=== PATIENT | male | born 1970 | race Caucasian/White ===

== ENCOUNTER 2019-09-19 22:04 | Emergency (ER) | payer MEDICAID, OTHER ==
[~2019-09-19] VITALS: Ht 170.2 cm; Wt 66.6 kg
--- NOTE | 2019-09-19 22:47 | NUR ---
GILBERTO FERRARA IN TO ERYN PT. AND DISCUSS POC.
[2019-09-19] MEDS ORDERED: LIDOCAINE-MPF 1%, 5ML INFIL ONE (23:00)
[2019-09-19] MEDS ORDERED: DIPH,PERTUSS(ACELL),TET VAC/PF 0.5 ML IM-VACC ONE (23:30)
[2019-09-19] MEDS ORDERED: PLEASE ENTER ALLERGIES MC SCH (23:45)
[2019-09-19] MEDS ORDERED: LIDOCAINE-MPF 1%, 5ML ONE (23:49)
[2019-09-20] MEDS ORDERED: BACITRACIN ZINC OINT 500U/GM, 0.9 GM ONE (00:12)
[2019-09-20 00:31] VITALS: BP 112/85
== END 2019-09-20 00:33 | disposition home or self-care (01) ==
LOC: ED 22:45
DX: S61.411A Laceration without foreign body of right hand, initial encounter (principal); L73.8 Other specified follicular disorders; F17.200 Nicotine dependence, unspecified, uncomplicated; W01.0XXA Fall on same level from slipping, tripping and stumbling without subsequent striking against object, initial encounter; Y93.89 Activity, other specified; Y92.098 Other place in other non-institutional residence as the place of occurrence of the external cause; Y99.8 Other external cause status; Z72.9 Problem related to lifestyle, unspecified
CPT/HCPCS: 12042; 90471; 90715; 99284

== ENCOUNTER 2019-10-03 21:49 | Emergency (ER) | payer MEDICAID ==
[~2019-10-03] VITALS: Ht 172.7 cm; Wt 67.0 kg
--- NOTE | 2019-10-03 22:05 | NUR ---
PT IN GOWN IN [facility]. AWAITING ERP. PT EDUCATED ON ER PROCESS AND VERBALIZES UNDERSTANDING. PT ATTACHED TO HOOKMAN AND VS MACHINES. VSS AT THIS TIME.
[2019-10-03] MEDS ORDERED: AMPH20TA2 PO (22:57)
[2019-10-03] MEDS ORDERED: CITA20TA6 PO (22:57)
[2019-10-03 23:36] LABS: ALANINE AMINOTRANSFERASE 24 U/L (12-78); ALBUMIN 3.6 g/dL (3.4-5.0); ANION GAP 8 mmol/L (5-15); CALCIUM 8.8 mg/dL (8.5-10.1); CHLORIDE 108 mmol/L (98-107); CREATININE 1.05 mg/dL (0.7-1.3)
[2019-10-03 23:38] LABS: ALKALINE PHOSPHATASE 67 U/L (45-117); BILIRUBIN,TOTAL 0.2 mg/dL (0.2-1.0); TOTAL PROTEIN 7.7 g/dL (6.4-8.2)
[2019-10-03 23:53] LABS: MEAN CORPUSCULAR HGB CONC 32.4 g/dL (33.2-36.2); MEAN CORPUSCULAR VOLUME 83.3 fL (81-97); MEAN PLATELET VOLUME 10.4 fL (7.4-10.4); PLATELET COUNT 212 x10^3/uL (130-400); RED BLOOD COUNT 4.83 x10^6/uL (4.38-5.82); RED CELL DISTRIBUTION WIDTH 16.8 % (9.4-14.8)
[2019-10-04 00:01] LABS: CULTURE INDICATED? YES; MICROSCOPIC INDICATED
[2019-10-04 00:16] VITALS: BP 120/73
--- NOTE | 2019-10-04 00:16 | NUR ---
PT RESTING IN [facility] AT THIS TIME; JOSÉ MIGUEL. PT VSS AND UPDATED IN EMR.
[2019-10-04 00:21] LABS: BASOPHILS # (AUTO) 0.03 x10^3/uL (0-0.1); BASOPHILS % (AUTO) 0 % (0-1); EOSINOPHILS # (AUTO) 0.12 x10^3/uL (0-0.4); EOSINOPHILS % (AUTO) 1 % (1-7); LYMPHOCYTES # (AUTO) 0.86 x10^3/uL (1-3.4); LYMPHOCYTES % (AUTO) 9 % (22-44); MD SCAN; MONOCYTES # (AUTO) 0.54 x10^3/uL (0.2-0.8); MONOCYTES % (AUTO) 6 % (2-9); NEUTROPHILS # (AUTO) 8.21 x10^3/uL (1.8-6.8); NEUTROPHILS % (AUTO) 84 % (42-75)
--- NOTE | 2019-10-04 00:39 | NUR ---
PT D/C WITH D/C SUMMARY AND SCRIPT. PT IV DC WITH TIP INTACT. PT VSS. PT DENIES ANY OTHER NEEDS PERTAINING TO THIS VISIT AND AMBULATES TO REGISTRATION DESK WITH STEADY GAIT FOR D/C HOME. PT QUESTIONS ANSWERED.
== END 2019-10-04 00:43 | disposition home or self-care (01) ==
LOC: ED 22:03
DX: N39.0 Urinary tract infection, site not specified (principal); R10.84 Generalized abdominal pain; F17.200 Nicotine dependence, unspecified, uncomplicated
CPT/HCPCS: 36415; 74022; 80053; 81001; 83690; 85025; 87086; 99284

== ENCOUNTER 2020-01-25 06:33 | Emergency (ER) | payer MEDICAID ==
[~2020-01-25] VITALS: Ht 170.2 cm; Wt 63.8 kg
[~2020-01-25 06:33] MED LIST: AMPH20TA2 PO; CITA20TA6 PO
[2020-01-25] MEDS ORDERED: MAALOX/HYOSCYAMINE/LIDOCAINE 45 ML BTL ONE (06:49)
--- NOTE | 2020-01-25 06:54 | NUR ---
Pt report to Valeria mcfarland.
[2020-01-25] MEDS ORDERED: MAALOX/HYOSCYAMINE/LIDOCAINE 45 ML BTL PO ONE (07:00)
--- NOTE | 2020-01-25 07:00 | NUR ---
REPORT RECEIVED FROM JESSICA GONSALEZ.
[2020-01-25 07:06] LABS: BASOPHILS # (AUTO) 0.09 x10^3/uL (0-0.1); BASOPHILS % (AUTO) 1 % (0-1); EOSINOPHILS # (AUTO) 0.09 x10^3/uL (0-0.4); EOSINOPHILS % (AUTO) 1 % (1-7); LYMPHOCYTES # (AUTO) 2.12 x10^3/uL (1-3.4); LYMPHOCYTES % (AUTO) 28 % (22-44); MD NO; MEAN CORPUSCULAR HEMOGLOBIN 27.2 pg (27.5-34.5); MEAN CORPUSCULAR HGB CONC 32.7 g/dL (33.2-36.2); MEAN CORPUSCULAR VOLUME 83.4 fL (81-97); MONOCYTES % (AUTO) 7 % (2-9); NEUTROPHILS # (AUTO) 4.78 x10^3/uL (1.8-6.8); NEUTROPHILS % (AUTO) 63 % (42-75); PLATELET COUNT 213 x10^3/uL (130-400); RED BLOOD COUNT 4.91 x10^6/uL (4.38-5.82); RED CELL DISTRIBUTION WIDTH 16.5 % (9.4-14.8)
[2020-01-25 07:07] VITALS: BP 149/100
--- NOTE | 2020-01-25 07:07 | NUR ---
pt medicated per emar. pt tolerated well.
[2020-01-25 07:19] LABS: ALANINE AMINOTRANSFERASE 19 U/L (12-78); ALBUMIN 4.2 g/dL (3.4-5.0); ANION GAP 6 mmol/L (5-15); CALCIUM 9.4 mg/dL (8.5-10.1); CHLORIDE 109 mmol/L (98-107)
[2020-01-25 07:21] LABS: ALKALINE PHOSPHATASE 54 U/L (45-117); BILIRUBIN,TOTAL 0.3 mg/dL (0.2-1.0)
--- NOTE | 2020-01-25 07:49 | NUR ---
Patient given discharge instructions and they have confirmed that they understand the instructions. Patient ambulatory with steady gait.
== END 2020-01-25 07:50 | disposition home or self-care (01) ==
LOC: ED 07:40
DX: K26.3 Acute duodenal ulcer without hemorrhage or perforation (principal); K64.8 Other hemorrhoids; R10.13 Epigastric pain; R21 Rash and other nonspecific skin eruption
CPT/HCPCS: 36415; 80053; 83690; 85025; 99283

== ENCOUNTER 2020-03-31 04:00 | Emergency (ER) | payer MEDICAID ==
[~2020-03-31] VITALS: Ht 170.2 cm; Wt 68.0 kg
[2020-03-31] MEDS ORDERED: SODIUM CHLORIDE FLUSH 10ML SYR IVF ONE (05:00)
[2020-03-31] MEDS ORDERED: ONDANSETRON 2MG/ML, 2ML IVPush ONE (05:00)
[2020-03-31] MEDS ORDERED: MORPHINE SULFATE 4 MG/ML, 1ML IVPush PRN (05:00)
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
[2020-03-31 05:20] LABS: BASOPHILS % (AUTO) 1 % (0-1); EOSINOPHILS % (AUTO) 3 % (1-7); LYMPHOCYTES % (AUTO) 41 % (22-44); MEAN CORPUSCULAR HEMOGLOBIN 26.4 pg (27.5-34.5); MEAN CORPUSCULAR HGB CONC 32.6 g/dL (33.2-36.2); MEAN PLATELET VOLUME 9.7 fL (7.4-10.4); MONOCYTES % (AUTO) 11 % (2-9); NEUTROPHILS % (AUTO) 44 % (42-75); PLATELET COUNT 189 x10^3/uL (130-400); RED BLOOD COUNT 4.74 x10^6/uL (4.38-5.82); RED CELL DISTRIBUTION WIDTH 16.9 % (9.4-14.8)
[2020-03-31 05:21] LABS: ALBUMIN 3.8 g/dL (3.4-5.0); ANION GAP 8 mmol/L (5-15); CALCIUM 9.1 mg/dL (8.5-10.1); CHLORIDE 114 mmol/L (98-107); CREATININE 1.06 mg/dL (0.7-1.3)
[2020-03-31] MEDS ORDERED: LORazepam 2 MG/ML, 1ML ONE ×2 (05:21→07:36)
[2020-03-31] MEDS ORDERED: ONDANSETRON 2MG/ML, 2ML ONE (05:24)
[2020-03-31 05:25] LABS: TROPONIN I < 0.015 ng/mL (0.000-0.045)
[2020-03-31] MEDS ORDERED: LORazepam 2 MG/ML, 1ML IVPush ONE ×2 (05:30→07:30)
[2020-03-31] MEDS ORDERED: PLEASE ENTER HEIGHT AND WEIGHT MC SCH (05:30)
--- NOTE | 2020-03-31 05:30 | NUR ---
late entry d/t pt care: pt medicated per mar, pt noted to be diaphoretic, wont stay in [facility], yelling out, states "im going to vomit!". wctm .
[2020-03-31 06:18] LABS: MD SCAN
--- NOTE | 2020-03-31 06:28 | NUR ---
PT TO CT VIA [facility] AT THIS TIME PT REMAINS ON PADS D/T HR IN HIGH 30'S
[2020-03-31] MEDS ORDERED: SODIUM CHLORIDE 0.9% 1,000ML IVBOLUS ONE (06:30)
--- NOTE | 2020-03-31 06:30 | NUR ---
late entry d/t pt care: pt bradying down on monitor to high 30s, place on defib pads for monitoring. additional IV obtained. pt appears to be in less pain, no longer rolling around gurney and crying out as often. MD aware, repeat EKG completed. bilateral BPs check and found to be equal, pulses equal bilaterally. pt taken to CT by RN for monitoring.
[2020-03-31] MEDS ORDERED: OMNIPAQUE 350 MG/ML, 100ML BOTTLE ONE (06:46)
--- NOTE | 2020-03-31 06:48 | NUR ---
PATIENT REPORT TAKEN, PATIENT IN BED ON MONITOR AND ZOLL PATIENT BELIA'S INTO LOW 40'S. PATIENT IS NOW SLEEPY, WAKES TO LIGHT PHYSICAL TOUCH AND CLAIMS TO HAVE 6 OF 10 PAIN ABDOMINALLY AND THEN FALLS BACK ASLEEP. CARE ASSUMED, WILL MONITOR.
--- NOTE | 2020-03-31 06:52 | NUR ---
Note ledaone in EDM - 03/31/20 at 0656 by RAPHAEL late entry d/t pt care: pt bradying down on monitor to high 30s, place on defib pads for monitoring. additional IV obtained. pt appears to be in less pain, no longer rolling around gurney and crying out as often. aware, repeat EKG completed. bilateral BPs check and found to be equal, pulses equal bilaterally. pt taken to CT by RN for monitoring.
--- NOTE | 2020-03-31 06:57 | NUR ---
bedside report to James GONSALEZ. pt care transferred at this time.
--- NOTE | 2020-03-31 07:12 | NUR ---
HELPED PATIENT GET URINAL AND GO TO BATHROOM. HE IS MOANING AND COMPLAINING OF PAIN, AND ROLLING AROUND IN BED SEEMINGLY NOT AWARE OF MONITORING LINES AND IV'S. HELPED ARRANGE PATIENT AND ORGANIZE LINES. ASKED HIM IF THIS IS NORMAL FOR HIM - HIS MOANING / PAIN / BEHAVIOR AND PATIENT STATES YES WHEN HE IS IN PAIN THIS IS HIS BASELINE. PATIENT HAS RAILS UP. GETTING LAB DRAW.
--- NOTE | 2020-03-31 07:29 | NUR ---
PATIENT GIVEN 4 BLANKETS AND ARRANGED IN BED. HE REPORTS ABDOMINAL AND CHEST PAIN. HR NOW CONSISTENTLY HIGHER IN 60'S - 70'S. PATIENT IS ORIENTED TO PERSON, AND THAT HE IS HERE FOR CHEST AND ABDOMINAL PAIN. PATIENT IS DISORIENTED TO DATE/PLACE. STILL HAVING SOME BELIA EPISODES TO 40'S, ON ZOLL AND ROOM MONITOR. RAILS UP.
[2020-03-31 07:37] LABS: ALANINE AMINOTRANSFERASE 30 U/L (12-78); ALBUMIN 3.8 g/dL (3.4-5.0); BILIRUBIN, DIRECT 0.2 mg/dL (0.1-0.2)
[2020-03-31 07:39] LABS: ALKALINE PHOSPHATASE 58 U/L (45-117); BILIRUBIN,INDIRECT 0.2 mg/dL (0.0-2.0); BILIRUBIN,TOTAL 0.4 mg/dL (0.2-1.0); TOTAL PROTEIN 7.7 g/dL (6.4-8.2)
[2020-03-31] MEDS ORDERED: POTASSIUM CHLORIDE 20 MEQ TAB.ER.PRT PO ONE (08:30)
[2020-03-31 08:48] LABS: AMPHETAMINE SCREEN, URINE Positive (Negative); BARBITURATE SCREEN, URINE Negative (Negative); BENZODIAZEPINE SCREEN, URINE Negative (Negative); CANNABINOID SCREEN, URINE Positive (Negative); COCAINE SCREEN, URINE Negative (Negative); METHADONE SCREEN, URINE Negative (Negative); OPIATE SCREEN, URINE Positive (Negative)
[2020-03-31 09:16] LABS: TROPONIN I < 0.015 ng/mL (0.000-0.045)
[2020-03-31 09:40] VITALS: BP 128/78
== END 2020-03-31 10:16 | disposition home or self-care (01) ==
LOC: ED 10:15
DX: R07.89 Other chest pain (principal); F15.129 Other stimulant abuse with intoxication, unspecified; R00.0 Tachycardia, unspecified; I45.9 Conduction disorder, unspecified; R10.9 Unspecified abdominal pain; F17.290 Nicotine dependence, other tobacco product, uncomplicated
CPT/HCPCS: 36415; 71045; 71275; 74177; 80048; 80076; 82040; 83690; 83880; 84484; 85025; 93005; 96361; 96374; 96375; 96376; 99285; J2060; J2405; J7030; Q9967; 80307

== ENCOUNTER 2020-08-17 21:43 | Emergency (ER) | payer MEDICAID ==
[~2020-08-17] VITALS: Ht 170.2 cm; Wt 63.8 kg
[2020-08-17] MEDS ORDERED: SODIUM CHLORIDE FLUSH 10ML SYR IVF ONE (22:30)
[2020-08-17] MEDS ORDERED: SODIUM CHLORIDE 0.9% 1,000ML IVBOLUS ONE (22:30)
[2020-08-17 22:32] LABS: BASOPHILS % (AUTO) 1 % (0-1); EOSINOPHILS % (AUTO) 1 % (1-7); LYMPHOCYTES % (AUTO) 17 % (22-44); MEAN CORPUSCULAR HEMOGLOBIN 27.3 pg (27.5-34.5); MEAN CORPUSCULAR HGB CONC 33.4 g/dL (33.2-36.2); MONOCYTES % (AUTO) 5 % (2-9); NEUTROPHILS % (AUTO) 77 % (42-75); PLATELET COUNT 224 x10^3/uL (130-400); RED BLOOD COUNT 4.95 x10^6/uL (4.38-5.82); RED CELL DISTRIBUTION WIDTH 16.4 % (9.4-14.8)
[2020-08-17 22:33] LABS: MD NO
--- NOTE | 2020-08-17 22:42 | NUR ---
Pt to ER with c/o being cold, sweating for the last 4 days, having diarrhea, and c/o abd pain. Pt states feeling weak at home and not being able to get out of bed. Pt to ER on monitor, EKG done in triage. Warm blanket given. Labs sent to lab. IV placed and NS infusing. Will monitor.
[2020-08-17 22:45] LABS: ALANINE AMINOTRANSFERASE 16 U/L (12-78); ALBUMIN 3.4 g/dL (3.4-5.0); ANION GAP 7 mmol/L (5-15); CHLORIDE 108 mmol/L (98-107); CREATININE 1.23 mg/dL (0.7-1.3)
[2020-08-17 22:49] LABS: ALKALINE PHOSPHATASE 69 U/L (45-117); BILIRUBIN,TOTAL 0.4 mg/dL (0.2-1.0); TROPONIN I < 0.015 ng/mL (0.000-0.045)
[2020-08-17 23:26] LABS: AMPHETAMINE SCREEN, URINE Negative (Negative); BARBITURATE SCREEN, URINE Negative (Negative); BENZODIAZEPINE SCREEN, URINE Negative (Negative); CANNABINOID SCREEN, URINE Positive (Negative); COCAINE SCREEN, URINE Negative (Negative); METHADONE SCREEN, URINE Negative (Negative); OPIATE SCREEN, URINE Negative (Negative)
[2020-08-17] MEDS ORDERED: KETOROLAC 30 MG/1 ML ONE (23:46)
[2020-08-18] MEDS ORDERED: SODIUM CHLORIDE 0.9% 1,000ML IVBOLUS ONE
[2020-08-18] MEDS ORDERED: KETOROLAC 30 MG/1 ML IVPush ONE
--- NOTE | 2020-08-18 00:14 | NUR ---
Pt to CT, and back to room. Pt tolerated well. Pt states minimal relief from toradol. Warmer to pt for pt comfort. Pt remains A&O x 4. Will contiune to monitor.
--- NOTE | 2020-08-18 01:19 | NUR ---
Pt calm in room. Appears much more comfortable. Resting calmly in bed. Juice given. Will monitor.
[2020-08-18 02:00] VITALS: BP 121/75
--- NOTE | 2020-08-18 02:14 | NUR ---
Patient given discharge instructions and they have confirmed that they understand the instructions. Patient ambulatory with steady gait. nad, denies additional needs, questions answered appropriately, no personal belongings left in room after dc.
[2020-08-18] MEDS ORDERED: OMNIPAQUE 350 MG/ML, 100ML BOTTLE ONE (23:42)
== END 2020-08-18 02:16 | disposition home or self-care (01) ==
LOC: ED 08-18 02:10
DX: K59.00 Constipation, unspecified (principal); R10.84 Generalized abdominal pain; Z20.822 Contact with and (suspected) exposure to COVID-19; R19.7 Diarrhea, unspecified; R05 Cough
CPT/HCPCS: 36415; 71045; 74177; 80053; 80307; 80320; 83690; 84484; 85025; 93005; 96361; 96374; 99285; J1885; J7030; Q9967; U0003; G0480

== ENCOUNTER 2020-08-18 10:58 | Inpatient (IN) | payer MEDICAID ==
[~2020-08-18] VITALS: Ht 170.2 cm; Wt 61.5 kg
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
[2020-08-18] MEDS ORDERED: MORPHINE SULFATE 4 MG/ML, 1ML ONE ×2 (11:23→12:37)
[2020-08-18] MEDS ORDERED: ONDANSETRON 2MG/ML, 2ML ONE (11:23)
[2020-08-18] MEDS ORDERED: DIPH,PERTUSS(ACELL),TET VAC/PF 0.5 ML IM-VACC ONE ×2 (11:23→11:30)
--- NOTE | 2020-08-18 11:26 | NUR ---
TRAVELING FREIGHT AGENT WAS TALKING TO PT. PT IS NOW OFF UNIT IN IMAGING.
[2020-08-18 11:29] LABS: BASOPHILS % (AUTO) 1 % (0-1); EOSINOPHILS % (AUTO) 1 % (1-7); LYMPHOCYTES % (AUTO) 17 % (22-44); MD NO; MEAN CORPUSCULAR HEMOGLOBIN 27.5 pg (27.5-34.5); MEAN CORPUSCULAR HGB CONC 33.8 g/dL (33.2-36.2); MEAN PLATELET VOLUME 10.1 fL (7.4-10.4); MONOCYTES % (AUTO) 6 % (2-9); NEUTROPHILS % (AUTO) 76 % (42-75); PLATELET COUNT 209 x10^3/uL (130-400); RED CELL DISTRIBUTION WIDTH 16.3 % (9.4-14.8)
[2020-08-18] MEDS ORDERED: ONDANSETRON 2MG/ML, 2ML IVPush ONE (11:30)
[2020-08-18] MEDS ORDERED: LIDOCAINE 1%-EPI 1:100K, 20ML INFIL ONE (11:30)
[2020-08-18] MEDS ORDERED: LIDOCAINE-MPF 1%, 5ML INFIL ONE (11:30)
[2020-08-18] MEDS ORDERED: MORPHINE SULFATE 4 MG/ML, 1ML IVPush ONE ×2 (11:30→12:30)
[2020-08-18] MEDS ORDERED: PLEASE ENTER HEIGHT AND WEIGHT MC SCH (11:30)
[2020-08-18 11:38] LABS: ALBUMIN 3.2 g/dL (3.4-5.0); ANION GAP 5 mmol/L (5-15); CALCIUM 8.4 mg/dL (8.5-10.1); CHLORIDE 108 mmol/L (98-107)
--- NOTE | 2020-08-18 11:54 | NUR ---
PT MEDICATED PER MD ORDER. VSS
[2020-08-18] MEDS ORDERED: LIDOCAINE-MPF 1%, 5ML ONE (12:09)
[2020-08-18] MEDS ORDERED: PROCHLORPERAZINE 5 MG/ML, 2ML IVPush ONE (12:30)
[2020-08-18] MEDS ORDERED: PROCHLORPERAZINE 5 MG/ML, 2ML ONE (12:37)
--- NOTE | 2020-08-18 12:45 | NUR ---
MEDICATED PT TO MD ORDER. JOSE ARMANDO ESCALANTE CLEANSED WOUND. PA IN ROOM PERFORMING MARTINA AND SUTURES ON PT. VSS.
--- NOTE | 2020-08-18 12:53 | NUR ---
PTS VITALS STABLE AFTER MEDICATION
[2020-08-18] MEDS ORDERED: SODIUM CHLORIDE 0.9% 1,000 ML IV SCH (13:30)
[2020-08-18] MEDS ORDERED: LABETALOL 5MG/ML, 20ML IVPush PRN (13:30)
[2020-08-18] MEDS ORDERED: ENALAPRILAT 1.25 MG/ML, 2ML IVPush PRN (13:30)
[2020-08-18] MEDS ORDERED: BISACODYL 10 MG SUPP PR PRN (13:30)
[2020-08-18 13:41] LABS: INTERNATIONAL NORMALIZED RATIO 1.19 (0.93-1.1); PROTHROMBIN TIME 12.7 Seconds (9.6-11.5)
--- NOTE | 2020-08-18 13:59 | NUR ---
REPORT GIVEN TO YFN GONSALEZ
[2020-08-18] MEDS: ONDANSETRON 2MG/ML, 2ML IVPush PRN (14:07)
[2020-08-18 14:56] VITALS: BP 148/94
[2020-08-18] MEDS: LEVETIRACETAM 500 MG in SODIUM CHLORIDE 0.9% 100 ML IV SCH (15:27)
[2020-08-18 16:41] LABS: AMPHETAMINE SCREEN, URINE Negative (Negative); BARBITURATE SCREEN, URINE Negative (Negative); BENZODIAZEPINE SCREEN, URINE Negative (Negative); CANNABINOID SCREEN, URINE Positive (Negative); COCAINE SCREEN, URINE Negative (Negative); METHADONE SCREEN, URINE Negative (Negative); OPIATE SCREEN, URINE Positive (Negative)
[2020-08-18] MEDS: ACETAMINOPHEN 325 MG TABLET PO PRN (17:14)
[2020-08-18] MEDS: OXYcodone IR 5MG TABLET PO PRN (20:03)
[2020-08-19] MEDS: OXYcodone IR 5MG TABLET PO PRN ×3 (00:30→23:38)
[2020-08-19] MEDS: ONDANSETRON 2MG/ML, 2ML IVPush PRN ×2 (00:37→05:10)
[2020-08-19] MEDS: LEVETIRACETAM 500 MG in SODIUM CHLORIDE 0.9% 100 ML IV SCH ×2 (03:18→15:08)
[2020-08-19 04:48] LABS: BASOPHILS % (AUTO) 0 % (0-1); EOSINOPHILS % (AUTO) 0 % (1-7); LYMPHOCYTES % (AUTO) 9 % (22-44); MEAN CORPUSCULAR HEMOGLOBIN 27.3 pg (27.5-34.5); MEAN CORPUSCULAR HGB CONC 33.4 g/dL (33.2-36.2); MEAN PLATELET VOLUME 9.9 fL (7.4-10.4); MONOCYTES % (AUTO) 5 % (2-9); NEUTROPHILS % (AUTO) 85 % (42-75); PLATELET COUNT 210 x10^3/uL (130-400); RED CELL DISTRIBUTION WIDTH 16.3 % (9.4-14.8)
[2020-08-19 04:50] LABS: MD NO
[2020-08-19] MEDS ORDERED: MORPHINE SULFATE 4 MG/ML, 1ML ONE (04:55)
[2020-08-19 04:57] LABS: CHLORIDE 109 mmol/L (98-107)
[2020-08-19] MEDS ORDERED: LORazepam 2 MG/ML, 1ML IVPush PRN (05:00)
[2020-08-19] MEDS ORDERED: PROMETHAZINE 25 MG/ML, 1ML IM PRN (05:00)
[2020-08-19] MEDS: MORPHINE SULFATE 4 MG/ML, 1ML IVPush PRN (05:04)
[2020-08-19 05:05] LABS: ALANINE AMINOTRANSFERASE 16 U/L (12-78); ALBUMIN 3.6 g/dL (3.4-5.0); ALKALINE PHOSPHATASE 75 U/L (45-117); ANION GAP 7 mmol/L (5-15); BILIRUBIN,TOTAL 0.5 mg/dL (0.2-1.0); CALCIUM 8.9 mg/dL (8.5-10.1); CREATININE 1.02 mg/dL (0.7-1.3); TOTAL PROTEIN 8.1 g/dL (6.4-8.2)
[2020-08-19] MEDS: LORazepam 2 MG/ML, 1ML IVPush PRN ×3 (07:45→18:20)
[2020-08-19] MEDS: SENNA/DOCUSATE TABLET PO SCH (12:30)
[2020-08-19] MEDS ORDERED: ZIPRASIDONE 20 MG INJ IM ONE ×2 (18:20→18:30)
[2020-08-20] MEDS: LEVETIRACETAM 500 MG in SODIUM CHLORIDE 0.9% 100 ML IV SCH ×2 (02:46→15:56)
[2020-08-20] MEDS: LORazepam 2 MG/ML, 1ML IVPush PRN ×2 (03:00→20:57)
[2020-08-20 07:17] LABS: ANION GAP 5 mmol/L (5-15); CALCIUM 9.1 mg/dL (8.5-10.1); CHLORIDE 106 mmol/L (98-107); CREATININE 0.91 mg/dL (0.7-1.3)
[2020-08-20] MEDS: SENNA/DOCUSATE TABLET PO SCH (09:00)
[2020-08-20 15:25] VITALS: BP 121/78
[2020-08-20] MEDS: OXYcodone IR 5MG TABLET PO PRN ×2 (16:12→20:56)
[2020-08-20 18:59] VITALS: BP 139/78
[2020-08-21 00:20] VITALS: BP 132/82
[2020-08-21] MEDS: OXYcodone IR 5MG TABLET PO PRN ×6 (02:29→23:19)
[2020-08-21] MEDS: LEVETIRACETAM 500 MG in SODIUM CHLORIDE 0.9% 100 ML IV SCH ×3 (03:41→17:30)
[2020-08-21] MEDS: LORazepam 2 MG/ML, 1ML IVPush PRN ×3 (05:51→20:18)
[2020-08-21 07:36] VITALS: BP 145/68
[2020-08-21] MEDS: SENNA/DOCUSATE TABLET PO SCH (10:19)
[2020-08-21 12:10] VITALS: BP 132/84
[2020-08-21] MEDS: ACETAMINOPHEN 325 MG TABLET PO PRN (20:18)
[2020-08-21 20:31] VITALS: BP 149/86
[2020-08-21] MEDS ORDERED: NICOTINE 21 MG/24 HR PATCH.TD24 TD ONE (23:30)
[2020-08-22] MEDS: NICOTINE 21 MG/24 HR PATCH.TD24 TD SCH ×2 (00:03→09:14)
[2020-08-22 01:17] VITALS: BP 144/87
[2020-08-22] MEDS: LORazepam 2 MG/ML, 1ML IVPush PRN (01:40)
[2020-08-22] MEDS: ONDANSETRON 2MG/ML, 2ML IVPush PRN (01:53)
[2020-08-22] MEDS: LEVETIRACETAM 500 MG in SODIUM CHLORIDE 0.9% 100 ML IV SCH ×2 (04:00→17:00)
[2020-08-22] MEDS: OXYcodone IR 5MG TABLET PO PRN ×3 (04:39→20:05)
[2020-08-22 05:12] LABS: BASOPHILS % (AUTO) 1 % (0-1); EOSINOPHILS % (AUTO) 1 % (1-7); LYMPHOCYTES % (AUTO) 24 % (22-44); MEAN CORPUSCULAR HGB CONC 32.9 g/dL (33.2-36.2); MEAN PLATELET VOLUME 9.3 fL (7.4-10.4); MONOCYTES % (AUTO) 9 % (2-9); NEUTROPHILS % (AUTO) 65 % (42-75); PLATELET COUNT 251 x10^3/uL (130-400); RED BLOOD COUNT 4.86 x10^6/uL (4.38-5.82); RED CELL DISTRIBUTION WIDTH 15.9 % (9.4-14.8)
[2020-08-22 05:13] LABS: MD NO
[2020-08-22 05:27] LABS: CHLORIDE 104 mmol/L (98-107)
[2020-08-22 05:33] LABS: ANION GAP 3 mmol/L (5-15); CALCIUM 8.6 mg/dL (8.5-10.1); CREATININE 0.93 mg/dL (0.7-1.3)
[2020-08-22] MEDS: MORPHINE SULFATE 4 MG/ML, 1ML IVPush PRN ×3 (06:45→17:23)
[2020-08-22 07:45] VITALS: BP 145/83
[2020-08-22] MEDS: AMLODIPINE 2.5 MG TABLET PO SCH (09:06)
[2020-08-22] MEDS: SENNA/DOCUSATE TABLET PO SCH (09:06)
[2020-08-22] MEDS: SODIUM CHLORIDE 1 GM TABLET PO SCH ×2 (09:06→20:05)
[2020-08-22 13:15] VITALS: BP 122/74
[2020-08-22 20:07] VITALS: BP 129/81
[2020-08-23 00:47] VITALS: BP 122/78
[2020-08-23] MEDS: OXYcodone IR 5MG TABLET PO PRN ×3 (02:18→20:04)
[2020-08-23] MEDS: ACETAMINOPHEN 325 MG TABLET PO PRN (03:45)
[2020-08-23] MEDS: LEVETIRACETAM 500 MG in SODIUM CHLORIDE 0.9% 100 ML IV SCH ×2 (04:00→16:30)
[2020-08-23] MEDS: MORPHINE SULFATE 4 MG/ML, 1ML IVPush PRN ×2 (05:14→12:04)
[2020-08-23 05:50] LABS: ALANINE AMINOTRANSFERASE 22 U/L (12-78); ALBUMIN 3.4 g/dL (3.4-5.0); ANION GAP 3 mmol/L (5-15); CALCIUM 9.2 mg/dL (8.5-10.1); CHLORIDE 106 mmol/L (98-107)
[2020-08-23 05:53] LABS: ALKALINE PHOSPHATASE 71 U/L (45-117); BILIRUBIN,TOTAL 0.2 mg/dL (0.2-1.0); TOTAL PROTEIN 7.7 g/dL (6.4-8.2)
[2020-08-23 05:54] LABS: BASOPHILS % (AUTO) 1 % (0-1); EOSINOPHILS % (AUTO) 3 % (1-7); LYMPHOCYTES % (AUTO) 34 % (22-44); MEAN CORPUSCULAR HEMOGLOBIN 27.4 pg (27.5-34.5); MEAN CORPUSCULAR HGB CONC 33.4 g/dL (33.2-36.2); MEAN PLATELET VOLUME 9.3 fL (7.4-10.4); MONOCYTES % (AUTO) 10 % (2-9); NEUTROPHILS % (AUTO) 52 % (42-75); PLATELET COUNT 277 x10^3/uL (130-400); RED CELL DISTRIBUTION WIDTH 15.9 % (9.4-14.8)
[2020-08-23 06:05] LABS: MD NO
[2020-08-23 07:40] VITALS: BP 151/69
[2020-08-23] MEDS: SENNA/DOCUSATE TABLET PO SCH (07:56)
[2020-08-23] MEDS: NICOTINE 21 MG/24 HR PATCH.TD24 TD SCH (07:56)
[2020-08-23] MEDS: POLYETHYLENE GLYCOL 17 GM PACKET PO PRN (07:57)
[2020-08-23] MEDS: AMLODIPINE 2.5 MG TABLET PO SCH (07:57)
[2020-08-23] MEDS: SODIUM CHLORIDE 1 GM TABLET PO SCH ×2 (07:57→20:04)
[2020-08-23] MEDS: ONDANSETRON 2MG/ML, 2ML IVPush PRN (12:56)
[2020-08-23 15:23] VITALS: BP 153/84
[2020-08-23 18:59] VITALS: BP 144/88
[2020-08-23] MEDS: LORazepam 2 MG/ML, 1ML IVPush PRN (20:05)
[2020-08-24 00:30] VITALS: BP 156/84
[2020-08-24] MEDS: ACETAMINOPHEN 325 MG TABLET PO PRN ×2 (01:06→21:26)
[2020-08-24] MEDS: LEVETIRACETAM 500 MG in SODIUM CHLORIDE 0.9% 100 ML IV SCH ×2 (03:59→16:44)
[2020-08-24] MEDS: MORPHINE SULFATE 4 MG/ML, 1ML IVPush PRN (03:59)
[2020-08-24 05:44] LABS: BASOPHILS % (AUTO) 1 % (0-1); EOSINOPHILS % (AUTO) 1 % (1-7); LYMPHOCYTES % (AUTO) 28 % (22-44); MEAN CORPUSCULAR HEMOGLOBIN 27.1 pg (27.5-34.5); MEAN CORPUSCULAR HGB CONC 33.5 g/dL (33.2-36.2); MEAN PLATELET VOLUME 9.1 fL (7.4-10.4); MONOCYTES % (AUTO) 9 % (2-9); NEUTROPHILS % (AUTO) 62 % (42-75); PLATELET COUNT 270 x10^3/uL (130-400)
[2020-08-24 05:50] LABS: MD NO
[2020-08-24 05:55] LABS: CALCIUM 8.9 mg/dL (8.5-10.1); CHLORIDE 104 mmol/L (98-107)
[2020-08-24 05:59] LABS: ANION GAP 6 mmol/L (5-15); CREATININE 0.93 mg/dL (0.7-1.3)
[2020-08-24 07:47] VITALS: BP 143/87
[2020-08-24] MEDS: SODIUM CHLORIDE 1 GM TABLET PO SCH ×2 (08:40→19:58)
[2020-08-24] MEDS: AMLODIPINE 2.5 MG TABLET PO SCH (08:40)
[2020-08-24] MEDS: SENNA/DOCUSATE TABLET PO SCH (08:41)
[2020-08-24] MEDS: NICOTINE 21 MG/24 HR PATCH.TD24 TD SCH (08:41)
[2020-08-24 13:23] VITALS: BP_DIAS 78
[2020-08-24] MEDS: OXYcodone IR 5MG TABLET PO PRN ×2 (15:31→18:02)
[2020-08-24 19:27] VITALS: BP 145/87
[2020-08-24] MEDS: LORazepam 2 MG/ML, 1ML IVPush PRN (19:58)
[2020-08-25 00:13] VITALS: BP 138/82
[2020-08-25] MEDS: MORPHINE SULFATE 4 MG/ML, 1ML IVPush PRN ×2 (00:35→05:43)
[2020-08-25] MEDS: LEVETIRACETAM 500 MG in SODIUM CHLORIDE 0.9% 100 ML IV SCH ×2 (04:11→16:08)
[2020-08-25 05:40] LABS: CHLORIDE 103 mmol/L (98-107)
[2020-08-25] MEDS: ACETAMINOPHEN 325 MG TABLET PO PRN ×2 (05:43→16:08)
[2020-08-25 05:45] LABS: ANION GAP 6 mmol/L (5-15); CALCIUM 9.3 mg/dL (8.5-10.1); CREATININE 0.97 mg/dL (0.7-1.3)
[2020-08-25 07:08] VITALS: BP 151/90
[2020-08-25] MEDS: NICOTINE 21 MG/24 HR PATCH.TD24 TD SCH (07:41)
[2020-08-25] MEDS: POLYETHYLENE GLYCOL 17 GM PACKET PO PRN (07:56)
[2020-08-25] MEDS: SENNA/DOCUSATE TABLET PO SCH (07:56)
[2020-08-25] MEDS: OXYcodone IR 5MG TABLET PO PRN ×3 (07:56→18:28)
[2020-08-25] MEDS: AMLODIPINE 2.5 MG TABLET PO SCH (07:57)
[2020-08-25] MEDS: SODIUM CHLORIDE 1 GM TABLET PO SCH ×2 (07:57→20:24)
[2020-08-25] MEDS: METOCLOPRAMIDE 5 MG/ML, 2ML IVPush SCH ×3 (07:57→20:25)
[2020-08-25 08:13] LABS: BASOPHILS % (AUTO) 1 % (0-1); EOSINOPHILS % (AUTO) 1 % (1-7); LYMPHOCYTES % (AUTO) 27 % (22-44); MD NO; MEAN CORPUSCULAR HEMOGLOBIN 27.3 pg (27.5-34.5); MEAN CORPUSCULAR HGB CONC 33.4 g/dL (33.2-36.2); MONOCYTES % (AUTO) 6 % (2-9); NEUTROPHILS % (AUTO) 64 % (42-75); PLATELET COUNT 303 x10^3/uL (130-400); RED BLOOD COUNT 5.12 x10^6/uL (4.38-5.82)
[2020-08-25 08:18] LABS: ANION GAP 6 mmol/L (5-15); CALCIUM 9.6 mg/dL (8.5-10.1); CHLORIDE 103 mmol/L (98-107); CREATININE 1.05 mg/dL (0.7-1.3)
[2020-08-25 12:14] VITALS: BP 115/75
[2020-08-25] MEDS ORDERED: LORazepam 1MG TABLET PO ONE (14:00)
[2020-08-25 20:12] VITALS: BP 107/70
[2020-08-26] MEDS: LORazepam 2 MG/ML, 1ML IVPush PRN ×5 (00:04→23:13)
[2020-08-26] MEDS: OXYcodone IR 5MG TABLET PO PRN ×5 (03:07→23:31)
[2020-08-26] MEDS: METOCLOPRAMIDE 5 MG/ML, 2ML IVPush SCH ×4 (03:07→19:53)
[2020-08-26 03:11] VITALS: BP 128/87
[2020-08-26] MEDS: LEVETIRACETAM 500 MG in SODIUM CHLORIDE 0.9% 100 ML IV SCH ×2 (03:11→16:44)
[2020-08-26] MEDS: ACETAMINOPHEN 325 MG TABLET PO PRN (05:22)
[2020-08-26 07:43] VITALS: BP 159/85
[2020-08-26 08:18] LABS: BASOPHILS % (AUTO) 1 % (0-1); EOSINOPHILS % (AUTO) 1 % (1-7); LYMPHOCYTES % (AUTO) 19 % (22-44); MEAN CORPUSCULAR HEMOGLOBIN 26.8 pg (27.5-34.5); MEAN CORPUSCULAR HGB CONC 32.7 g/dL (33.2-36.2); MONOCYTES % (AUTO) 5 % (2-9); NEUTROPHILS % (AUTO) 74 % (42-75); PLATELET COUNT 310 x10^3/uL (130-400); RED CELL DISTRIBUTION WIDTH 15.8 % (9.4-14.8)
[2020-08-26 08:22] LABS: MD NO
[2020-08-26 08:30] LABS: CHLORIDE 103 mmol/L (98-107)
[2020-08-26 08:38] LABS: ALANINE AMINOTRANSFERASE 26 U/L (12-78); ALBUMIN 3.4 g/dL (3.4-5.0); ALKALINE PHOSPHATASE 63 U/L (45-117); ANION GAP 4 mmol/L (5-15); BILIRUBIN,TOTAL 0.3 mg/dL (0.2-1.0); CALCIUM 9.2 mg/dL (8.5-10.1); TOTAL PROTEIN 7.6 g/dL (6.4-8.2)
[2020-08-26] MEDS: NICOTINE 21 MG/24 HR PATCH.TD24 TD SCH (09:00)
[2020-08-26] MEDS: SODIUM CHLORIDE 1 GM TABLET PO SCH ×2 (09:12→19:53)
[2020-08-26] MEDS: SENNA/DOCUSATE TABLET PO SCH (09:12)
[2020-08-26] MEDS: AMLODIPINE 2.5 MG TABLET PO SCH (09:12)
[2020-08-26] MEDS: LEVETIRACETAM 500 MG TABLET PO SCH (19:53)
[2020-08-26 20:22] VITALS: BP 154/82
[2020-08-26] MEDS: ONDANSETRON 2MG/ML, 2ML IVPush PRN (23:27)
[2020-08-27] MEDS: METOCLOPRAMIDE 5 MG/ML, 2ML IVPush SCH ×4 (01:34→20:37)
[2020-08-27 01:57] VITALS: BP 146/78
[2020-08-27] MEDS: OXYcodone IR 5MG TABLET PO PRN ×4 (04:41→18:01)
[2020-08-27] MEDS: LORazepam 2 MG/ML, 1ML IVPush PRN ×5 (05:27→22:10)
[2020-08-27 08:49] VITALS: BP 145/79
[2020-08-27] MEDS: NICOTINE 21 MG/24 HR PATCH.TD24 TD SCH (09:00)
[2020-08-27] MEDS: SODIUM CHLORIDE 1 GM TABLET PO SCH ×2 (09:04→20:38)
[2020-08-27] MEDS: AMLODIPINE 2.5 MG TABLET PO SCH (09:04)
[2020-08-27] MEDS: LEVETIRACETAM 500 MG TABLET PO SCH ×2 (09:04→20:37)
[2020-08-27] MEDS: SENNA/DOCUSATE TABLET PO SCH (09:05)
[2020-08-27] MEDS ORDERED: TRAZ-96 PO (11:49)
[2020-08-27] MEDS ORDERED: DEXT10TA22 PO (11:49)
[2020-08-27 20:26] VITALS: BP 114/64
[2020-08-28] MEDS: LORazepam 2 MG/ML, 1ML IVPush PRN ×8 (00:52→22:51)
[2020-08-28] MEDS: OXYcodone IR 5MG TABLET PO PRN ×4 (00:57→18:03)
[2020-08-28 01:04] VITALS: BP 123/67
[2020-08-28] MEDS: METOCLOPRAMIDE 5 MG/ML, 2ML IVPush SCH ×4 (02:00→20:22)
[2020-08-28 07:15] VITALS: BP 132/79
[2020-08-28] MEDS: LEVETIRACETAM 500 MG TABLET PO SCH ×2 (08:14→20:22)
[2020-08-28] MEDS: SODIUM CHLORIDE 1 GM TABLET PO SCH ×2 (08:14→20:22)
[2020-08-28] MEDS: SENNA/DOCUSATE TABLET PO SCH (08:15)
[2020-08-28] MEDS: ACETAMINOPHEN 325 MG TABLET PO PRN (08:15)
[2020-08-28] MEDS: AMLODIPINE 2.5 MG TABLET PO SCH (08:15)
[2020-08-28] MEDS: NICOTINE 21 MG/24 HR PATCH.TD24 TD SCH (08:18)
[2020-08-28] MEDS ORDERED: DEXT10TA7 PO (11:32)
[2020-08-28] MEDS ORDERED: OLAN10TA9 PO (11:32)
[2020-08-28] MEDS ORDERED: ESCI20TA8 PO (11:32)
[2020-08-28 12:15] VITALS: BP 132/80
[2020-08-28] MEDS: ESCITALOPRAM 10MG TABLET PO SCH (15:56)
[2020-08-28 18:43] VITALS: BP 127/74
[2020-08-29 00:44] VITALS: BP 117/82
[2020-08-29] MEDS: METOCLOPRAMIDE 5 MG/ML, 2ML IVPush SCH ×4 (02:00→19:59)
[2020-08-29] MEDS: LORazepam 2 MG/ML, 1ML IVPush PRN ×4 (05:21→17:27)
[2020-08-29] MEDS: OXYcodone IR 5MG TABLET PO PRN ×2 (08:11→17:28)
[2020-08-29] MEDS: ESCITALOPRAM 10MG TABLET PO SCH (08:11)
[2020-08-29] MEDS: LEVETIRACETAM 500 MG TABLET PO SCH ×2 (08:11→19:59)
[2020-08-29] MEDS: SODIUM CHLORIDE 1 GM TABLET PO SCH ×2 (08:11→19:59)
[2020-08-29] MEDS: AMLODIPINE 2.5 MG TABLET PO SCH (08:11)
[2020-08-29] MEDS: NICOTINE 21 MG/24 HR PATCH.TD24 TD SCH (08:12)
[2020-08-29 08:55] VITALS: BP 121/79
[2020-08-29] MEDS: SENNA/DOCUSATE TABLET PO SCH (09:00)
[2020-08-29 10:37] LABS: BASOPHILS % (AUTO) 1 % (0-1); EOSINOPHILS % (AUTO) 1 % (1-7); LYMPHOCYTES % (AUTO) 25 % (22-44); MEAN CORPUSCULAR HEMOGLOBIN 26.9 pg (27.5-34.5); MEAN CORPUSCULAR HGB CONC 32.7 g/dL (33.2-36.2); MEAN PLATELET VOLUME 8.5 fL (7.4-10.4); MONOCYTES % (AUTO) 7 % (2-9); NEUTROPHILS % (AUTO) 65 % (42-75); PLATELET COUNT 318 x10^3/uL (130-400); RED BLOOD COUNT 4.57 x10^6/uL (4.38-5.82); RED CELL DISTRIBUTION WIDTH 16.3 % (9.4-14.8)
[2020-08-29 10:40] LABS: MD NO
[2020-08-29 10:42] LABS: ANION GAP 1 mmol/L (5-15); CALCIUM 8.6 mg/dL (8.5-10.1); CHLORIDE 104 mmol/L (98-107); CREATININE 0.81 mg/dL (0.7-1.3)
[2020-08-29 10:52] LABS: FREE T4 (FREE THYROXINE) 0.75 ng/dL (0.76-1.46)
[2020-08-29 12:12] VITALS: BP 136/85
[2020-08-29] MEDS: ACETAMINOPHEN 325 MG TABLET PO PRN (13:10)
[2020-08-29] MEDS: TRAZODONE 50MG TABLET PO PRN (19:59)
[2020-08-29 20:12] VITALS: BP 127/82
[2020-08-30 00:13] VITALS: BP 118/76
[2020-08-30] MEDS: METOCLOPRAMIDE 5 MG/ML, 2ML IVPush SCH ×4 (01:50→20:14)
[2020-08-30] MEDS: ACETAMINOPHEN 325 MG TABLET PO PRN ×2 (03:17→16:52)
[2020-08-30] MEDS ORDERED: LORazepam 1MG TABLET ONE (07:42)
[2020-08-30 07:44] VITALS: BP 136/85
[2020-08-30] MEDS: LEVETIRACETAM 500 MG TABLET PO SCH ×2 (07:48→20:15)
[2020-08-30] MEDS: SENNA/DOCUSATE TABLET PO SCH (07:48)
[2020-08-30] MEDS: AMLODIPINE 2.5 MG TABLET PO SCH (07:48)
[2020-08-30] MEDS: ESCITALOPRAM 10MG TABLET PO SCH (07:48)
[2020-08-30] MEDS: SODIUM CHLORIDE 1 GM TABLET PO SCH ×2 (07:49→20:15)
[2020-08-30] MEDS: LORazepam 1MG TABLET PO PRN ×3 (07:49→20:15)
[2020-08-30] MEDS: NICOTINE 21 MG/24 HR PATCH.TD24 TD SCH (07:49)
[2020-08-30 10:04] LABS: BASOPHILS % (AUTO) 1 % (0-1); EOSINOPHILS % (AUTO) 1 % (1-7); LYMPHOCYTES % (AUTO) 30 % (22-44); MEAN CORPUSCULAR HEMOGLOBIN 27.1 pg (27.5-34.5); MEAN PLATELET VOLUME 8.9 fL (7.4-10.4); MONOCYTES % (AUTO) 6 % (2-9); NEUTROPHILS % (AUTO) 62 % (42-75); PLATELET COUNT 317 x10^3/uL (130-400); RED BLOOD COUNT 4.61 x10^6/uL (4.38-5.82); RED CELL DISTRIBUTION WIDTH 16.4 % (9.4-14.8)
[2020-08-30 10:08] LABS: ALANINE AMINOTRANSFERASE 24 U/L (12-78); ALBUMIN 3.5 g/dL (3.4-5.0); ANION GAP 5 mmol/L (5-15); CHLORIDE 105 mmol/L (98-107); CREATININE 0.93 mg/dL (0.7-1.3)
[2020-08-30 10:11] LABS: ALKALINE PHOSPHATASE 64 U/L (45-117); BILIRUBIN,TOTAL 0.2 mg/dL (0.2-1.0); TOTAL PROTEIN 7.6 g/dL (6.4-8.2)
[2020-08-30 10:18] LABS: MD NO
[2020-08-30] MEDS: OXYcodone IR 5MG TABLET PO PRN ×2 (11:19→20:15)
[2020-08-30 15:00] VITALS: BP 126/78
[2020-08-30 19:04] VITALS: BP 110/67
[2020-08-30] MEDS: TRAZODONE 50MG TABLET PO PRN (20:15)
[2020-08-31 00:31] VITALS: BP 102/71
[2020-08-31] MEDS: METOCLOPRAMIDE 5 MG/ML, 2ML IVPush SCH ×4 (01:57→20:16)
[2020-08-31 07:41] VITALS: BP 95/56
[2020-08-31] MEDS: LEVETIRACETAM 500 MG TABLET PO SCH ×2 (09:00→20:16)
[2020-08-31] MEDS: NICOTINE 21 MG/24 HR PATCH.TD24 TD SCH (09:00)
[2020-08-31] MEDS: SENNA/DOCUSATE TABLET PO SCH (09:00)
[2020-08-31] MEDS: AMLODIPINE 2.5 MG TABLET PO SCH (09:00)
[2020-08-31] MEDS: ESCITALOPRAM 10MG TABLET PO SCH (09:00)
[2020-08-31] MEDS: SODIUM CHLORIDE 1 GM TABLET PO SCH ×2 (09:00→20:16)
[2020-08-31] MEDS: LORazepam 1MG TABLET PO PRN ×3 (09:34→21:38)
[2020-08-31] MEDS: OXYcodone IR 5MG TABLET PO PRN ×3 (09:35→21:38)
[2020-08-31 13:10] VITALS: BP 122/78
[2020-08-31 19:35] VITALS: BP 116/73
[2020-08-31] MEDS: TRAZODONE 50MG TABLET PO PRN (20:16)
[2020-09-01 01:50] VITALS: BP 92/62
[2020-09-01] MEDS: METOCLOPRAMIDE 5 MG/ML, 2ML IVPush SCH ×4 (01:57→19:39)
[2020-09-01 06:47] VITALS: BP_SYST 108; BP_SYST 110; BP_DIAS 68; BP_DIAS 70
[2020-09-01] MEDS: NICOTINE 21 MG/24 HR PATCH.TD24 TD SCH (09:00)
[2020-09-01] MEDS: LEVETIRACETAM 500 MG TABLET PO SCH ×2 (09:22→19:50)
[2020-09-01] MEDS: SENNA/DOCUSATE TABLET PO SCH (09:22)
[2020-09-01] MEDS: ESCITALOPRAM 10MG TABLET PO SCH (09:22)
[2020-09-01] MEDS: SODIUM CHLORIDE 1 GM TABLET PO SCH ×2 (09:22→19:50)
[2020-09-01] MEDS: AMLODIPINE 2.5 MG TABLET PO SCH (09:22)
[2020-09-01] MEDS: LORazepam 1MG TABLET PO PRN ×2 (09:49→19:39)
[2020-09-01 12:26] VITALS: BP 112/64
[2020-09-01] MEDS: ACETAMINOPHEN 325 MG TABLET PO PRN ×2 (15:13→22:05)
[2020-09-01 19:36] VITALS: BP 148/87
[2020-09-01] MEDS: TRAZODONE 50MG TABLET PO PRN (22:05)
[2020-09-02 01:27] VITALS: BP 130/83
[2020-09-02] MEDS: METOCLOPRAMIDE 5 MG/ML, 2ML IVPush SCH ×4 (02:16→20:20)
[2020-09-02 06:31] VITALS: BP 133/86
[2020-09-02] MEDS: ESCITALOPRAM 10MG TABLET PO SCH (09:00)
[2020-09-02] MEDS: SODIUM CHLORIDE 1 GM TABLET PO SCH ×2 (09:00→20:20)
[2020-09-02] MEDS: SENNA/DOCUSATE TABLET PO SCH (09:00)
[2020-09-02] MEDS: LEVETIRACETAM 500 MG TABLET PO SCH ×2 (09:00→20:20)
[2020-09-02] MEDS: AMLODIPINE 2.5 MG TABLET PO SCH (09:00)
[2020-09-02] MEDS: NICOTINE 21 MG/24 HR PATCH.TD24 TD SCH (09:00)
[2020-09-02 12:14] VITALS: BP 128/84
[2020-09-02 20:18] VITALS: BP 136/88
[2020-09-02] MEDS: ACETAMINOPHEN 325 MG TABLET PO PRN (20:30)
[2020-09-02] MEDS: LORazepam 1MG TABLET PO PRN (20:30)
[2020-09-03] MEDS: METOCLOPRAMIDE 5 MG/ML, 2ML IVPush SCH ×2 (01:56→08:00)
[2020-09-03 02:56] VITALS: BP 123/81
[2020-09-03] MEDS: LORazepam 1MG TABLET PO PRN ×4 (02:57→21:02)
[2020-09-03 06:25] VITALS: BP 124/81
[2020-09-03] MEDS: LEVETIRACETAM 500 MG TABLET PO SCH ×2 (08:12→20:57)
[2020-09-03] MEDS: AMLODIPINE 2.5 MG TABLET PO SCH (08:12)
[2020-09-03] MEDS: ESCITALOPRAM 10MG TABLET PO SCH (08:12)
[2020-09-03] MEDS: SENNA/DOCUSATE TABLET PO SCH (08:12)
[2020-09-03] MEDS: NICOTINE 21 MG/24 HR PATCH.TD24 TD SCH (08:13)
[2020-09-03] MEDS: SODIUM CHLORIDE 1 GM TABLET PO SCH ×3 (08:13→20:57)
[2020-09-03 10:25] VITALS: BP 125/87
[2020-09-03] MEDS: ACETAMINOPHEN 325 MG TABLET PO PRN (10:35)
[2020-09-03] MEDS: OXYcodone IR 5MG TABLET PO PRN ×3 (12:22→21:05)
[2020-09-03 13:15] VITALS: BP 137/83
[2020-09-03 19:26] VITALS: BP 124/81
[2020-09-03] MEDS: TRAZODONE 50MG TABLET PO PRN (21:02)
[2020-09-03] MEDS: POLYETHYLENE GLYCOL 17 GM PACKET PO PRN (21:03)
[2020-09-04 00:53] VITALS: BP 120/81
[2020-09-04] MEDS: SODIUM CHLORIDE 1 GM TABLET PO SCH ×4 (06:00→20:44)
[2020-09-04] MEDS: OXYcodone IR 5MG TABLET PO PRN ×4 (06:35→21:49)
[2020-09-04] MEDS: LORazepam 1MG TABLET PO PRN ×3 (06:35→23:07)
[2020-09-04 06:54] VITALS: BP 106/70
[2020-09-04] MEDS: AMLODIPINE 2.5 MG TABLET PO SCH (08:37)
[2020-09-04] MEDS: NICOTINE 21 MG/24 HR PATCH.TD24 TD SCH (08:38)
[2020-09-04] MEDS: LEVETIRACETAM 500 MG TABLET PO SCH ×2 (08:38→20:44)
[2020-09-04] MEDS: ESCITALOPRAM 10MG TABLET PO SCH (08:38)
[2020-09-04] MEDS: SENNA/DOCUSATE TABLET PO SCH (08:38)
[2020-09-04 13:29] VITALS: BP 112/73
[2020-09-04] MEDS: ACETAMINOPHEN 325 MG TABLET PO PRN (15:46)
[2020-09-04 20:22] VITALS: BP 107/58
[2020-09-04 21:46] VITALS: BP 120/72
[2020-09-05 00:19] VITALS: BP 109/67
[2020-09-05 04:48] VITALS: BP 107/73
[2020-09-05] MEDS: OXYcodone IR 5MG TABLET PO PRN ×4 (04:50→21:12)
[2020-09-05] MEDS: SODIUM CHLORIDE 1 GM TABLET PO SCH ×4 (05:02→19:42)
[2020-09-05 06:29] VITALS: BP 103/64
[2020-09-05] MEDS: AMLODIPINE 2.5 MG TABLET PO SCH (07:41)
[2020-09-05] MEDS: SENNA/DOCUSATE TABLET PO SCH (07:42)
[2020-09-05] MEDS: NICOTINE 21 MG/24 HR PATCH.TD24 TD SCH (07:42)
[2020-09-05] MEDS: ESCITALOPRAM 10MG TABLET PO SCH (07:42)
[2020-09-05] MEDS: LEVETIRACETAM 500 MG TABLET PO SCH ×2 (07:42→19:41)
[2020-09-05] MEDS: LORazepam 1MG TABLET PO PRN ×3 (07:54→19:41)
[2020-09-05 12:44] VITALS: BP 138/79
[2020-09-05 18:39] VITALS: BP 110/75
[2020-09-05] MEDS: TRAZODONE 50MG TABLET PO PRN (19:42)
[2020-09-05] MEDS: KETOROLAC 10MG TABLET PO SCH (21:13)
[2020-09-06] MEDS: KETOROLAC 10MG TABLET PO SCH ×3 (03:00→16:26)
[2020-09-06] MEDS: OXYcodone IR 5MG TABLET PO PRN (05:45)
[2020-09-06] MEDS: SODIUM CHLORIDE 1 GM TABLET PO SCH ×3 (05:45→16:25)
[2020-09-06 07:20] VITALS: BP 98/57
[2020-09-06] MEDS: SENNA/DOCUSATE TABLET PO SCH (08:17)
[2020-09-06] MEDS: NICOTINE 21 MG/24 HR PATCH.TD24 TD SCH (08:17)
[2020-09-06] MEDS: LEVETIRACETAM 500 MG TABLET PO SCH (08:18)
[2020-09-06] MEDS: AMLODIPINE 2.5 MG TABLET PO SCH (08:18)
[2020-09-06] MEDS: ESCITALOPRAM 10MG TABLET PO SCH (08:18)
[2020-09-06 09:53] LABS: FREE T4 (FREE THYROXINE) 0.78 ng/dL (0.76-1.46)
[2020-09-06] MEDS: LORazepam 1MG TABLET PO PRN ×2 (12:04→20:01)
[2020-09-06] MEDS ORDERED: LEVE500T53 PO (13:18)
[2020-09-06 13:56] VITALS: BP 102/74
[2020-09-06] MEDS ORDERED: LEVO75TA PO (16:11)
[2020-09-06] MEDS: ACETAMINOPHEN 325 MG TABLET PO PRN (20:01)
== END 2020-09-06 20:13 | disposition home or self-care (01) | DRG 83 ==
LOC: ED 11:10 → EDIP 12:19 → CCU 13:59 → 5SO 08-20 13:24 → 4EST 08-22 14:13 → 3N 09-04 09:24
PROVIDERS: ADMIT Internal Medicine; ATTEND Family Medicine
DX: S06.5X9A Traumatic subdural hemorrhage with loss of consciousness of unspecified duration, initial encounter (principal); E87.1 Hypo-osmolality and hyponatremia; W22.8XXA Striking against or struck by other objects, initial encounter; D64.9 Anemia, unspecified; D72.828 Other elevated white blood cell count; F39 Unspecified mood [affective] disorder; F41.9 Anxiety disorder, unspecified; G47.00 Insomnia, unspecified; G47.419 Narcolepsy without cataplexy; K64.9 Unspecified hemorrhoids; F32.9 Major depressive disorder, single episode, unspecified; F91.9 Conduct disorder, unspecified; D72.829 Elevated white blood cell count, unspecified; N40.0 Benign prostatic hyperplasia without lower urinary tract symptoms; Y93.89 Activity, other specified; Y92.89 Other specified places as the place of occurrence of the external cause; Y99.8 Other external cause status; Q53.10 Unspecified undescended testicle, unilateral; Z87.11 Personal history of peptic ulcer disease; Z88.8 Allergy status to other drugs, medicaments and biological substances; Z88.0 Allergy status to penicillin
CPT/HCPCS: 12032; 36415; 70450; 72125; 80048; 80053; 80307; 82040; 83735; 84100; 84295; 84439; 84443; 84481; 85025; 85610; 87081; 90471; 90715; 93005; 96374; G0378; J1953; J2405; J2550; J3486; 92523-GN; J0780; J2060; J2270; J2765; J7030

== ENCOUNTER 2020-09-08 09:18 | Emergency (ER) | payer MEDICAID ==
[~2020-09-08] VITALS: Ht 170.2 cm; Wt 64.0 kg
[~2020-09-08 09:18] MED LIST changes: +DEXT10TA22 PO; +DEXT10TA7 PO; +ESCI20TA8 PO; +LEVE500T53 PO; +LEVO75TA PO; +OLAN10TA69 PO; +TRAZ-96 PO
[2020-09-08] MEDS ORDERED: LORazepam 1MG TABLET PO ONE (09:30)
[2020-09-08] MEDS ORDERED: LORazepam 1MG TABLET ONE (09:33)
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
--- NOTE | 2020-09-08 10:26 | NUR ---
PATIENT SITTING IN GURNEY ROCKING BACK AND FORTH, STATES "I NEED SOMETHING ELSE, THE MEDICATION ISN'T WORKING, AND MY LEGS ARE CRAMPING UP." VSS, SEIZURE PRECAUTIONS IN PLACE.
--- NOTE | 2020-09-08 10:55 | NUR ---
ERPA AT BEDSIDE TO DISCUSS POC.
--- NOTE | 2020-09-08 11:08 | NUR ---
SPOKE WITH PATIENT'S MOTHER, SHE IS IN [place], PATIENT CANNOT GO BACK TO WHERE HE WAS LIVING, BECAUSE THE PEOPLE ARE LEAVING TODAY PER MOM. MOM IS GOING TO CALL A FRIEND TO SEE IF THEY CAN COME GET PATIENT AND TAKE HIM TO APARTMENT.
[2020-09-08 11:49] VITALS: BP 136/83
--- NOTE | 2020-09-08 11:50 | NUR ---
PATIENT DOES NOT WANT TO BE DISCHARGED, STATES HE HAS NO WHERE TO GO AND HAS NO MONEY, MOM HAS NOT CALLED BACK ABOUT RIDE. TRIED CALLING MOM,, NO ANSWER, LEFT MESSAGE. THEO WILL COME SEE PATIENT.
--- NOTE | 2020-09-08 13:25 | NUR ---
FOOD TRAY PROVIDED, CLOTHES GIVEN TO PATIENT.
--- NOTE | 2020-09-08 13:50 | NUR ---
Patient given discharge instructions and taxi voucher to jail, taxi cab called for patient, they have confirmed that they understand the instructions. Patient stable and ambulatory with steady gait from ED to taxi.
== END 2020-09-08 13:51 | disposition home or self-care (01) ==
LOC: ED 10:49
DX: F41.1 Generalized anxiety disorder (principal); F17.210 Nicotine dependence, cigarettes, uncomplicated; Z88.0 Allergy status to penicillin
CPT/HCPCS: 99283